=== PATIENT | female | born 1940 | race Caucasian/White ===

== ENCOUNTER 2016-10-21 09:46 | Emergency (ER) | payer MEDICARE, OTHER ==
[2016-10-21 08:17] LABS: BASOPHILS 0.2 %; BASOPHILS ABSOLUTE 0.02 10/3/uL (0.0-0.16); EOSINOPHILS 2.1 %; EOSINOPHILS ABSOLUTE 0.18 10/3/uL (0.0-0.53); HEMATOCRIT 35.9 % (36.0-48.0); HEMOGLOBIN 11.4 g/dL (12.0-16.0); IMMATURE GRANULOCYTES 0.3 %; IMMATURE GRANULOCYTES ABSOLUTE 0.03 10/3/uL (0.0-0.11); LYMPHOCYTES 9.9 %; LYMPHOCYTES ABSOLUTE 0.86 10/3/uL (0.67-4.30); MEAN CORPUS HGB CONC 31.8 g/dL (32.0-36.0); MEAN CORPUSCULAR HEMOGLOB 30.9 pg (26.0-34.0); MEAN PLATELET VOLUME 9.2 fL (9.2-13.0); MONOCYTES 9.3 %; MONOCYTES ABSOLUTE 0.81 10/3/uL (0.21-1.20); NEUTROPHILS 78.2 %; PLATELET COUNT 233 10/3/uL (150-400); RBC DISTRIBUTION WIDTH 14.9 % (12.0-16.0); RED CELL COUNT 3.69 10/6/uL (4.0-5.6); WHITE BLOOD CELLS 8.7 10/3/uL (4.5-10.5)
[2016-10-21 08:18] LABS: ER CBC TAT 0 Hrs 07 MinsNP; MANUAL DIFF NO %; MEAN CORPUSCULAR VOLUME 97.3 fL (80-100)
[2016-10-21 08:29] LABS: BUN (BLOOD UREA NITROGEN) 38 MG/DL (6-23); CALCIUM, SERUM 8.7 MG/DL (8.5-10.4); CHLORIDE, SERUM 105 MMOL/L (96-112); CO2 (CARBON DIOXIDE) 29 MMOL/L (24-34); CREATININE 1.34 MG/DL (0.55-1.02); GFR AFRICAN AMERICAN 44 ML/MIN (>=60); GFR NON AFRICAN AMERICAN 38 ML/MIN (>=60); SODIUM, SERUM 142 MMOL/L (135-148)
[2016-10-21 08:30] LABS: GLUCOSE, SERUM 152 MG/DL (60-99)
[~2016-10-21 09:46] MED LIST: ALEVE220 MG PO; AVAP150 PO; BENEMID500 PO; CALTRA600D PO; CHERRY EXTRACT; CINNAMON EXTRACT; CYANO1000T PO; DOXAZOSIN PO; FISH-EPA1000 MG PO; L40 PO; LOP100 PO; MOBIC15 MG PO; [UNRECOGNIZED DRUG - OTHER]
[2016-12-18] MEDS ORDERED: JANTOVEN4 MG PO (11:14)
[2016-12-18] MEDS ORDERED: COREG6 PO (11:15)
[2016-12-18] MEDS ORDERED: JANTOVEN2.5 MG PO (11:15)
[2016-12-18] MEDS ORDERED: L40 PO (11:15)
[2016-12-18] MEDS ORDERED: ZOCOR20 PO (11:16)
[2016-12-18] MEDS ORDERED: BENEMID500 PO (11:17)
[2016-12-18] MEDS ORDERED: ASAB PO (11:45)
[2017-02-25] MEDS ORDERED: CYANO1000T PO (12:55)
[2017-04-29] MEDS ORDERED: BETAPACE80 PO (14:25)
== END 2016-10-21 11:00 | disposition home or self-care (01) ==
LOC: ER 09:46
PROVIDERS: Emergency Medicine
DX: L97.829 Non-pressure chronic ulcer of other part of left lower leg with unspecified severity (principal); I10 Essential (primary) hypertension; Z90.710 Acquired absence of both cervix and uterus; Z88.8 Allergy status to other drugs, medicaments and biological substances; Z79.899 Other long term (current) drug therapy
CPT/HCPCS: 80048; 85025; 99284

== ENCOUNTER 2016-12-25 10:11 | Day surgery (SDC) | payer MEDICARE, OTHER ==
--- NOTE | ~2016-12-25 | OP ---
Record Of Operation [facility] [address] [place]. 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 PROCEDURES: 1. Aortogram with left lower extremity runoff. 2. Angiojet mechanical thrombectomy of the left superficial femoral artery and popliteal arteries. 3. Percutaneous angioplasty of the left superficial femoral artery using a 6 mm balloon. 4. Percutaneous angioplasty of the left popliteal artery using a 4 mm balloon. 5. Percutaneous angioplasty of the left anterior tibial artery using a 3 mm balloon. SURGEON: Murray Rodarte M.D. TIMBER FALLER: None. ANESTHESIA: MAC plus local. INDICATIONS: The patient is a 76-year-old female with a history of atrial fibrillation and a prior right lower extremity embolus that necessitated intervention. She now has atherosclerosis of her left lower extremity with a nonhealing left leg venous ulcer. Thus, she was consented for intervention. DESCRIPTION OF PROCEDURE: After informed consent was obtained, the patient was taken to the operating room and placed in the supine position on the operating table. Monitored anesthesia was administered. The patient's groins and left lower extremity were prepped and draped in the usual sterile fashion. Ultrasound-guided access was obtained of the right common femoral artery using a micropuncture technique. An oblique angiogram confirmed puncture within the anterior common femoral artery. I passed a wire up into the aorta and placed a 5-Faroese sheath. A UF catheter was placed into the perirenal aorta. An aortogram demonstrated hemodynamically significant aortoiliac disease with patent renal arteries. I selected out the left external iliac artery and obtained sequential imaging down the left lower extremity. There was no hemodynamically significant left common femoral, deep femoral, or proximal superficial femoral artery disease. The distal SFA was occluded with reconstitution of the above knee popliteal artery. More distal flow was not well visualized. I systemically heparinized and placed a 6-Faroese 45 cm sheath up and over the aortic bifurcation into the left SFA. I obtained an angiogram from this point that demonstrated that there was reconstitution of the above knee popliteal artery after the SFA occlusion. The below-knee popliteal artery appeared to be occluded. There was anterior tibial runoff. I crossed the SFA occlusion and obtained an angiogram that demonstrated an SFA stenosis as well as proximal anterior tibial artery stenosis. The SFA appeared to have what seemed to be softer thrombus within it. I performed Angiojet mechanical thrombectomy of the left SFA and popliteal arteries using a 6-Faroese device. Imaging obtained afterwards Record Of Operation [address] [place]. [address] NAME: JOSE LUIS ARIAS : 38 STATUS : REG [facility] PAT#: [id number] AGE: 76 ADM/REG DATE : 12/25/16 MR#: [id number] REPORT SERV DATE: 12/25/16 DICTATED BY: MURRAY RODARTE DATE: 12/25/16 REPORT STATUS : Draft TRANSCRIBED BY: MALENA DATE: 12/25/16 showed improvement. I then angioplastied the underlying SFA stenosis with a 6 mm balloon. I angioplastied the popliteal artery with a 4 mm balloon. While there was improvement, there was still a distal popliteal artery stenosis as well as proximal anterior tibial artery stenosis. These were not well defined previously. I then angioplastied both of these with a 3 mm balloon. While there was a refractory component of stenosis at the origin of the anterior tibial artery, the flow was markedly better. There was no distal reconstitution of the posterior tibial or peroneal arteries. Given the fact that we had inline flow down to the foot, I withdrew my wire, catheter, and sheath and used a ProGlide device to close the arteriotomy. The patient tolerated the procedure well without any intraprocedural complications noted. SHAY/MALENA Murray Rodarte M.D. / [id number] CC: Anselmo Matt M.D. Terrance Antunez III, M.D.
[~2016-12-25 10:11] MED LIST changes: +ASAB PO; +COREG6 PO; +JANTOVEN2.5 MG PO; +JANTOVEN4 MG PO; +ZOCOR20 PO
[2016-12-25 10:56] LABS: HEMATOCRIT 36.3 % (36.0-48.0); HEMOGLOBIN 11.4 g/dL (12.0-16.0)
[2016-12-25 11:03] LABS: INTERNATIONAL NORMAL RATI 1.5 UNITS (-); PROTIME (NOT ORD) 18.4 SEC (12.0-14.5)
[2016-12-25 11:08] LABS: BUN (BLOOD UREA NITROGEN) 29 MG/DL (6-23); CALCIUM, SERUM 9.4 MG/DL (8.5-10.4); CHLORIDE, SERUM 106 MMOL/L (96-112); CO2 (CARBON DIOXIDE) 30 MMOL/L (24-34); CREATININE 1.34 MG/DL (0.55-1.02); GFR AFRICAN AMERICAN 44 ML/MIN (>=60); GFR NON AFRICAN AMERICAN 38 ML/MIN (>=60); GLUCOSE, SERUM 138 MG/DL (60-99); POTASSIUM, SERUM 4.6 MMOL/L (3.5-5.3); SODIUM, SERUM 141 MMOL/L (135-148)
[2017-02-25] MEDS ORDERED: CYANO1000T PO (12:55)
[2017-04-29] MEDS ORDERED: BETAPACE80 PO (14:25)
== END 2016-12-25 19:25 | disposition home or self-care (01) ==
LOC: SDC 10:11 → SSU1 16:21
PROVIDERS: Surgery
DX: I70.248 Atherosclerosis of native arteries of left leg with ulceration of other part of lower leg (principal); I87.312 Chronic venous hypertension (idiopathic) with ulcer of left lower extremity; Z90.710 Acquired absence of both cervix and uterus; E11.9 Type 2 diabetes mellitus without complications; I10 Essential (primary) hypertension; G47.30 Sleep apnea, unspecified; M19.90 Unspecified osteoarthritis, unspecified site; Z88.2 Allergy status to sulfonamides; I48.92 Unspecified atrial flutter
CPT/HCPCS: 37184; 37224; 37228; 75625; 75710; 75774; 80048; 85014; 85018; 85610; 93005; A9270-GY; C1725; C1757; C1760; C1769; C1894; J0360; J0690; J3010; Q9967

== ENCOUNTER 2017-04-30 22:17 | Inpatient (IN) | payer MEDICARE, OTHER ==
[~2017-04-30] VITALS: Ht 157.5 cm; Wt 89.8 kg
--- NOTE | ~2017-04-30 | HP ---
History And Physical [place] [id number] [facility] [place]. [address] NAME: JOSE LUIS ARIAS : 38 STATUS : ADM IN [facility]#: [id number] AGE: 76 ADM/REG DATE : 05/01/17 MR#: [id number] REPORT SERV DATE: 05/01/17 DICTATED BY: RADHA ALFARO DATE: 05/01/17 REPORT STATUS : Draft TRANSCRIBED BY: MODL DATE: 05/01/17 DATE OF ADMISSION: 05/01/2017 REASON FOR ADMISSION: Sinus bradycardia. HISTORY OF PRESENT ILLNESS: Ms. Arias is a 76-year-old woman with a history of atypical atrial flutter who underwent cardioversion with sotalol yesterday. This was successful. Post cardioversion, she had a long sinus pause and then was somewhat slow to recover her sinus rates. We decided to completely discontinue her sotalol. She went home, continued to feel dizzy and lightheaded, and presented to the emergency room last evening with bradycardia. This appeared to be secondary to a junctional escape rhythm in the 30s with pauses. There were intermittent sinus beats noted. PAST MEDICAL HISTORY: 1. The patient has a history of DVTs and arterial thromboses. She is on chronic anticoagulation. 2. A history of atypical atrial flutter. 3. Underlying sinus bradycardia. 4. Hypertension. HOME MEDICATIONS: Aspirin, Lasix, probenecid, Zocor, warfarin. The patient was taking sotalol 40 mg b.i.d., currently being held. FAMILY HISTORY: Negative for premature coronary disease, sudden cardiac . SOCIAL HISTORY: Negative for tobacco or alcohol. REVIEW OF SYSTEMS: As noted above. All other systems reviewed. PHYSICAL EXAMINATION: VITAL SIGNS: Blood pressure of 150/90, pulse 40 on 2 mcg of dopamine, respirations 16. GENERAL: Well developed, well nourished. HEENT: No icterus. Good dentition. NECK: Supple. No masses or thyromegaly. LUNGS: Breathing comfortably. No rales or wheezes. COR: Normal S1, S2. No S3 or S4. No murmurs, clicks, rubs. No JVD. ABD: Soft, nondistended, nontender, no hepatosplenomegaly. EXT: No clubbing, cyanosis or edema. Peripheral pulses 2+/=bilaterally. SKIN: Warm and dry. No visible lesions. MS: Chest wall without deformity, no obvious clavicular fractures. NEURO/PSYCH: Oriented X3. No anxiety or depression. LABORATORY VALUES: EKG shows junctional bradycardia, heart rate of 38 beats per minute, occasional P waves with long first-degree AV block, normal QRS, leftward axis, corrected QT interval of 460 milliseconds. PT/INR is 2.6 last evening. Electrolytes within normal History And Physical [address] [address] NAME: JOSE LUIS ARIAS : 38 STATUS : ADM IN PAT#: [id number] AGE: 76 ADM/REG DATE : 05/01/17 MR#: [id number] REPORT SERV DATE: 05/01/17 DICTATED BY: RADHA ALFARO DATE: 05/01/17 REPORT STATUS : Draft TRANSCRIBED BY: MALENA DATE: 05/01/17 limits. Creatinine of 1.7, which is above her baseline. IMPRESSION: The patient admitted with bradycardia currently and intermittent junctional escape rhythm along with underlying sinus bradycardia. She has a history of atypical atrial flutter originally treated with sotalol and underwent cardioversion yesterday. The sotalol was held afterwards due to evidence of underlying bradycardia. 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 Once this is placed, we can consider other potential treatments for her atypical atrial flutter, including potential use of sotalol depending whether the renal insufficiency improves. BALJIT/MALENA Radha Alfaro M.D. / [id number]
[~2017-04-30 22:17] MED LIST changes: +BETAPACE80 PO
[2017-04-30 23:29] LABS: BASOPHILS 0.4 %; BASOPHILS ABSOLUTE 0.04 10/3/uL (0.0-0.16); EOSINOPHILS 1.4 %; EOSINOPHILS ABSOLUTE 0.13 10/3/uL (0.0-0.53); ER CBC TAT 0 Hrs 07 Mins; HEMATOCRIT 40.3 % (36.0-48.0); HEMOGLOBIN 12.4 g/dL (12.0-16.0); IMMATURE GRANULOCYTES 0.3 %; IMMATURE GRANULOCYTES ABSOLUTE 0.03 10/3/uL (0.0-0.11); LYMPHOCYTES 10.9 %; MEAN CORPUS HGB CONC 30.8 g/dL (32.0-36.0); MEAN CORPUSCULAR HEMOGLOB 30.8 pg (26.0-34.0); MEAN PLATELET VOLUME 10.4 fL (9.2-13.0); MONOCYTES 8.5 %; MONOCYTES ABSOLUTE 0.78 10/3/uL (0.21-1.20); NEUTROPHILS 78.5 %; NEUTROPHILS ABSOLUTE 7.19 10/3/uL (2.02-8.40); PLATELET COUNT 261 10/3/uL (150-400); RBC DISTRIBUTION WIDTH 15.8 % (12.0-16.0); RED CELL COUNT 4.03 10/6/uL (4.0-5.6); WHITE BLOOD CELLS 9.2 10/3/uL (4.5-10.5)
[2017-04-30 23:30] LABS: MANUAL DIFF NO %
[2017-04-30 23:36] LABS: INTERNATIONAL NORMAL RATI 2.6 UNITS (-); PARTIAL THROMBO TIME 43.9 SEC (22.5-37.2); PROTIME (NOT ORD) 27.9 SEC (12.0-14.5)
[2017-04-30 23:45] LABS: CALCIUM, SERUM 9.1 MG/DL (8.5-10.4); CHEST PAIN PROFILE TAT 0 Hrs 23 Mins; CHLORIDE, SERUM 107 MMOL/L (96-112); CO2 (CARBON DIOXIDE) 24 MMOL/L (24-34); CREATININE 1.76 MG/DL (0.55-1.02); GFR AFRICAN AMERICAN 32 ML/MIN (>=60); GFR NON AFRICAN AMERICAN 27 ML/MIN (>=60); POTASSIUM, SERUM 4.7 MMOL/L (3.5-5.3); SODIUM, SERUM 139 MMOL/L (135-148); TROPONIN I 0.03 NG/ML (<0.05)
[2017-04-30 23:47] LABS: BUN (BLOOD UREA NITROGEN) 49 MG/DL (6-23); GLUCOSE, SERUM 211 MG/DL (60-99)
[2017-05-01] MEDS ORDERED: ASAB PO (01:27)
[2017-05-01] MEDS ORDERED: L40 PO (01:28)
[2017-05-01] MEDS ORDERED: CYANO1000T PO (01:28)
[2017-05-01] MEDS ORDERED: ZOCOR20 PO (01:29)
[2017-05-01] MEDS ORDERED: BENEMID500 PO (01:29)
[2017-05-01] MEDS ORDERED: JANTOVEN4 MG PO (01:30)
[2017-05-01] MEDS ORDERED: SORINE80 MG PO (01:30)
[2017-05-01 10:24] LABS: INTERNATIONAL NORMAL RATI 2.7 UNITS (-); PROTIME (NOT ORD) 28.7 SEC (12.0-14.5)
[2017-05-02 06:40] LABS: BASOPHILS 0.3 %; BASOPHILS ABSOLUTE 0.03 10/3/uL (0.0-0.16); EOSINOPHILS 1.1 %; EOSINOPHILS ABSOLUTE 0.12 10/3/uL (0.0-0.53); HEMATOCRIT 41.9 % (36.0-48.0); HEMOGLOBIN 12.4 g/dL (12.0-16.0); IMMATURE GRANULOCYTES 0.4 %; IMMATURE GRANULOCYTES ABSOLUTE 0.04 10/3/uL (0.0-0.11); LYMPHOCYTES ABSOLUTE 0.67 10/3/uL (0.67-4.30); MEAN CORPUS HGB CONC 29.6 g/dL (32.0-36.0); MEAN CORPUSCULAR HEMOGLOB 30.2 pg (26.0-34.0); MEAN CORPUSCULAR VOLUME 101.9 fL (80-100); MONOCYTES 7.6 %; MONOCYTES ABSOLUTE 0.85 10/3/uL (0.21-1.20); NEUTROPHILS 84.6 %; NEUTROPHILS ABSOLUTE 9.49 10/3/uL (2.02-8.40); PLATELET COUNT 209 10/3/uL (150-400); RBC DISTRIBUTION WIDTH 16.3 % (12.0-16.0); RED CELL COUNT 4.11 10/6/uL (4.0-5.6); WHITE BLOOD CELLS 11.2 10/3/uL (4.5-10.5)
[2017-05-02 06:47] LABS: MANUAL DIFF NO %
[2017-05-02 06:55] LABS: CALCIUM, SERUM 8.9 MG/DL (8.5-10.4); CHLORIDE, SERUM 109 MMOL/L (96-112); CO2 (CARBON DIOXIDE) 23 MMOL/L (24-34); CREATININE 1.48 MG/DL (0.55-1.02); GFR AFRICAN AMERICAN 39 ML/MIN (>=60); GFR NON AFRICAN AMERICAN 34 ML/MIN (>=60); SODIUM, SERUM 140 MMOL/L (135-148)
[2017-05-02 06:56] LABS: BUN (BLOOD UREA NITROGEN) 40 MG/DL (6-23); GLUCOSE, SERUM 128 MG/DL (60-99); POTASSIUM, SERUM 5.4 MMOL/L (3.5-5.3)
[2017-05-02 11:43] LABS: INTERNATIONAL NORMAL RATI 3.3 UNITS (-)
[2017-05-03 06:37] LABS: INTERNATIONAL NORMAL RATI 2.5 UNITS (-)
[2017-05-03 06:38] LABS: PROTIME (NOT ORD) 26.9 SEC (12.0-14.5)
[2017-05-03 06:42] LABS: BASOPHILS 0.2 %; BASOPHILS ABSOLUTE 0.02 10/3/uL (0.0-0.16); EOSINOPHILS 1.6 %; EOSINOPHILS ABSOLUTE 0.17 10/3/uL (0.0-0.53); HEMATOCRIT 36.2 % (36.0-48.0); HEMOGLOBIN 11.2 g/dL (12.0-16.0); IMMATURE GRANULOCYTES 0.3 %; IMMATURE GRANULOCYTES ABSOLUTE 0.03 10/3/uL (0.0-0.11); LYMPHOCYTES 8.6 %; MANUAL DIFF NO %; MEAN CORPUS HGB CONC 30.9 g/dL (32.0-36.0); MEAN CORPUSCULAR HEMOGLOB 30.5 pg (26.0-34.0); MEAN CORPUSCULAR VOLUME 98.6 fL (80-100); MEAN PLATELET VOLUME 10.4 fL (9.2-13.0); MONOCYTES 11.9 %; MONOCYTES ABSOLUTE 1.24 10/3/uL (0.21-1.20); NEUTROPHILS 77.4 %; NEUTROPHILS ABSOLUTE 8.06 10/3/uL (2.02-8.40); PLATELET COUNT 224 10/3/uL (150-400); RBC DISTRIBUTION WIDTH 16.4 % (12.0-16.0); RED CELL COUNT 3.67 10/6/uL (4.0-5.6); WHITE BLOOD CELLS 10.4 10/3/uL (4.5-10.5)
[2017-05-03 07:59] LABS: BUN (BLOOD UREA NITROGEN) 39 MG/DL (6-23); CALCIUM, SERUM 8.9 MG/DL (8.5-10.4); CHLORIDE, SERUM 109 MMOL/L (96-112); CO2 (CARBON DIOXIDE) 23 MMOL/L (24-34); CREATININE 1.14 MG/DL (0.55-1.02); GFR AFRICAN AMERICAN 54 ML/MIN (>=60); GFR NON AFRICAN AMERICAN 46 ML/MIN (>=60); GLUCOSE, SERUM 109 MG/DL (60-99); POTASSIUM, SERUM 4.9 MMOL/L (3.5-5.3); SODIUM, SERUM 141 MMOL/L (135-148)
[2017-05-04 06:58] LABS: BASOPHILS 0.2 %; BASOPHILS ABSOLUTE 0.02 10/3/uL (0.0-0.16); EOSINOPHILS 2.5 %; EOSINOPHILS ABSOLUTE 0.25 10/3/uL (0.0-0.53); HEMATOCRIT 35.3 % (36.0-48.0); IMMATURE GRANULOCYTES 0.3 %; IMMATURE GRANULOCYTES ABSOLUTE 0.03 10/3/uL (0.0-0.11); LYMPHOCYTES 12.7 %; LYMPHOCYTES ABSOLUTE 1.25 10/3/uL (0.67-4.30); MANUAL DIFF NO %; MEAN CORPUS HGB CONC 31.2 g/dL (32.0-36.0); MEAN CORPUSCULAR HEMOGLOB 30.9 pg (26.0-34.0); MEAN CORPUSCULAR VOLUME 99.2 fL (80-100); MEAN PLATELET VOLUME 9.7 fL (9.2-13.0); MONOCYTES 12.8 %; MONOCYTES ABSOLUTE 1.26 10/3/uL (0.21-1.20); NEUTROPHILS 71.5 %; NEUTROPHILS ABSOLUTE 7.02 10/3/uL (2.02-8.40); PLATELET COUNT 200 10/3/uL (150-400); RBC DISTRIBUTION WIDTH 15.8 % (12.0-16.0); RED CELL COUNT 3.56 10/6/uL (4.0-5.6); WHITE BLOOD CELLS 9.8 10/3/uL (4.5-10.5)
[2017-05-04 07:07] LABS: PROTIME (NOT ORD) 22.1 SEC (12.0-14.5)
[2017-05-04 07:11] LABS: BUN (BLOOD UREA NITROGEN) 35 MG/DL (6-23); CALCIUM, SERUM 9.2 MG/DL (8.5-10.4); CHLORIDE, SERUM 107 MMOL/L (96-112); CO2 (CARBON DIOXIDE) 27 MMOL/L (24-34); GFR AFRICAN AMERICAN 63 ML/MIN (>=60); GFR NON AFRICAN AMERICAN 54 ML/MIN (>=60); GLUCOSE, SERUM 103 MG/DL (60-99); POTASSIUM, SERUM 4.2 MMOL/L (3.5-5.3); SODIUM, SERUM 140 MMOL/L (135-148)
[2017-05-05 06:39] LABS: INTERNATIONAL NORMAL RATI 1.7 UNITS (-)
[2017-05-05 06:50] LABS: BUN (BLOOD UREA NITROGEN) 33 MG/DL (6-23); CALCIUM, SERUM 9.1 MG/DL (8.5-10.4); CHLORIDE, SERUM 106 MMOL/L (96-112); CO2 (CARBON DIOXIDE) 31 MMOL/L (24-34); CREATININE 0.93 MG/DL (0.55-1.02); GFR AFRICAN AMERICAN 69 ML/MIN (>=60); GFR NON AFRICAN AMERICAN 59 ML/MIN (>=60); GLUCOSE, SERUM 109 MG/DL (60-99); POTASSIUM, SERUM 3.8 MMOL/L (3.5-5.3); SODIUM, SERUM 143 MMOL/L (135-148)
[2017-05-05] MEDS ORDERED: APRES25 PO (14:23)
[2017-05-05] MEDS ORDERED: JANTOVEN5 MG PO (14:24)
== END 2017-05-05 17:32 | disposition home or self-care (01) | DRG 243 ==
LOC: ENRESERVDT → ENRESERVTM → ENRESERV → ER 22:17 → CVICU 05-01 01:47 → 7NO 05-01 01:47 → ER/OF 05-01 01:47 → CVICU 05-01 03:46 → 7NO 05-01 19:10
PROVIDERS: Internal Medicine Cardiovascular Disease; Student in an Organized Health Care Education/Training Program
PROC: 0JH606Z Insertion of Pacemaker, Dual Chamber into Chest Subcutaneous Tissue and Fascia, Open Approach (ICD-10-PCS; principal; 2017-05-01)
PROC: 02H63JZ Insertion of Pacemaker Lead into Right Atrium, Percutaneous Approach (ICD-10-PCS; 2017-05-01)
PROC: 02HK3JZ Insertion of Pacemaker Lead into Right Ventricle, Percutaneous Approach (ICD-10-PCS; 2017-05-01)
DX: I49.5 Sick sinus syndrome (principal); I48.4 Atypical atrial flutter; I10 Essential (primary) hypertension; Z86.718 Personal history of other venous thrombosis and embolism; Z79.01 Long term (current) use of anticoagulants; Z79.82 Long term (current) use of aspirin
CPT/HCPCS: 71010; 71020; 71260; 80048; 82962; 83735; 83880; 84484; 85025; 85610; 85730; 87641; 93005; 96374; 99291; A9270-GY; C1785; C1892; C1898; J0690; J2405; Q9967